=== PATIENT | male | born 1950 | race African-American/Black ===

== ENCOUNTER 2017-07-26 11:13 | Emergency (ER) | payer SELFPAY ==
[~2017-07-26 11:13] MED LIST: Sodium Chloride 0.9% 1,000 ML BAG ONE; Sodium Chloride 0.9% 100 ML BAG ONE; Sodium Chloride 0.9% 500 ML BAG ONE
[2017-07-26] MEDS ORDERED: Ondansetron HCl/PF 4 MG/2 ML Vial ONE (12:40)
[2017-07-26] MEDS ORDERED: HYDROcodone/Acetaminophen 10/325 mg Tablet ONE (12:40)
[2017-07-26] MEDS ORDERED: Naproxen 500 MG TAB ONE (12:40)
[2017-07-26 12:49] LABS: #Basophils 0.1 thou/uL (0.0-0.2); #Lymphocytes 1.3 thou/uL (1.20-3.40); #Monocytes 0.9 thou/uL (0.11-0.59); #Neutrophils 11.7 thou/uL (1.40-6.50); %Basophils 0.7 % (0.0-1.0); %Eosinophils 0.3 % (0.0-10.0); %Lymphocytes 9.2 % (21.0-51.0); %Monocytes 6.1 % (0.0-10.0); %Neutrophils 83.7 % (42.0-75.0); Hemoglobin 6.1 g/dL (14.0-18.0); Mean Corpuscular HGB CONC 32.5 g/dL (32.0-36.0); Mean Corpuscular Hemoglobin 28.1 pg (27.0-31.0); Mean Corpuscular Volume 86.5 fl (80.0-94.0); Mean Platelet Volume 6.2 fL (7.4-10.4); Platelet Count 205 thou/uL (130-400); RBC Distribution Width 16.5 % (11.5-14.5); Red Blood Cell (RBC) Count 2.16 mill/uL (4.70-6.10)
[2017-07-26 12:52] LABS: Bilirubin Negative (Negative); Blood, Urine Large (Negative); Clarity Clear (Clear); Glucose, Urine (Dipstick) Negative (Negative); Leukocyte Large (Negative); Nitrite Negative (Negative); Protein, Urine (Dipstick) 100 mg/dL (Neg-Trace); Specific Gravity, Urine 1.015 (1.005-1.030); Urobilinogen 0.2 mg/dL (0.2-1.0); pH, Urine 5.5 (5.0-9.0)
[2017-07-26 12:55] LABS: INR-International Normal Ratio 1.3; PTT 35.4 SEC (22.9-36.1); Prothrombin Time 16.6 SEC (12.0-14.7)
[2017-07-26 12:58] LABS: Bacteria/HPF 1+ HPF (None Seen); RBC/HPF 0-3 HPF (0-3); Squamous Epithelial 0-3 HPF (0-3)
[2017-07-26 13:09] LABS: ALT (SGPT) 29 U/L (8-55); AST (SGOT) 10 U/L (5-34); Albumin 3.8 g/dL (3.4-4.8); Alkaline Phosphatase 89 U/L (40-150); Bilirubin, Total 0.7 mg/dL (0.2-1.2); CK (CPK) 133 U/L (30-200); Calc. Creatinine Clearance 0 mL/min (70-130); Chloride 119 mmol/L (98-107); Estimated GFR-MDRD 2; Globulin 4.4 g/dL (2.4-3.5); Glucose 82 mg/dL (80-115); Lipase 236 U/L (8-78); Potassium 6.5 mmol/L (3.5-5.1); Protein, Total 8.2 g/dL (5.8-8.1); Sodium 146 mmol/L (136-145)
[2017-07-26 13:10] LABS: CKMB 5.3 ng/mL (0-6.6)
[2017-07-26 13:39] LABS: Carbon Dioxide Less than 8 mmol/L (23-31)
[2017-07-26 13:40] LABS: BUN (Urea Nitrogen) Greater than 125 mg/dL (8.4-25.7)
--- NOTE | 2017-07-26 14:38 | RAD ---
CHEST ONE VIEW: HISTORY: Weakness. Dyspnea. FINDINGS: The cardiac silhouette is magnified by projection and at the upper limits of normal in size. The pu lmonary vasculature is at the upper limits of normal and favored to account for subtle nodular densi ties at each perihilar level. No lobar consolidation or pneumothorax is apparent. shelter monitor leads overly the chest. IMPRESSION: No active cardiopulmonary abnormalities are demonstrated. POS: [facility]
--- NOTE | 2017-07-26 16:39 | CT ---
EXAM: ABDOMEN CT WITHOUT CONTRAST PELVIC CT WITHOUT CONTRAST 07/26/17 HISTORY: Right upper quadrant mass. Nausea. Vomiting. Weight loss. Weakness. COMPARISON: None. TECHNIQUE: Abdomen and pelvic CT are performed without IV or oral contrast. Contrast was not administered due t o decreased creatinine. Coronal reformatted images are submitted for interpretation. FINDINGS: ABDOMEN CT: Focal nodule in the left lung base measuring 1 cm. Heart size is normal. No significant pericardial f luid. Visualized aorta has an overall normal caliber. Limited evaluation of the solid organs due to the absence of IV contrast. Grossly, the solid organs are unremarkable. Gallbladder is contracted. Symmetric attenuation of psoas muscles. No mesenteric mass, lymphadenopathy, free air of free fluid. Visualized alimentary canal demonstrates a normal appearing stomach and duodenum. Multiple normal c aliber small bowel loops are noted. Ileocecal junction is normal. Normal caliber air filled appendix . Scattered fecal material in the right hemicolon. No evidence of colonic obstruction. There is severe bilateral hydronephrosis. Bilateral ureters are patent down to the level of the pelv ic inlet. Evaluation of the distal ureters is limited. PELVIC CT: Urinary bladder demonstrates marked distention with mucosal thickening. There appears to be a divert iculum at the dome of the urinary bladder. No calcifications. No pelvic lymphadenopathy, free air o r free fluid. There are no osteoblastic or osteolytic lesions. IMPRESSION: Marked distention in the urinary bladder with mucosal thickening. Bladder based pathology cannot be excluded. Cystoscopy is recommended. Urology consultation is also recommended due to severe bilatera l hydronephrosis as well as bilateral hydroureter. The exact transition point is hard to appreciate but appears to involve the ureters at the level of the pelvic inlet. Retrograde opacification is rec ommended. POS: [facility]
[2017-07-26] MEDS ORDERED: cefTRIAXone\\ROCEPHIN 2 GM VIAL ONE (16:56)
[2017-07-26] MEDS ORDERED: Levofloxacin 500 mg/D5W 100 ml Premix Bag ONE (16:56)
== END 2017-07-26 17:35 | disposition short-term general hospital (02) ==
LOC: MADERS 11:13
DX: K85.90 Acute pancreatitis without necrosis or infection, unspecified (principal); I50.9 Heart failure, unspecified; N39.0 Urinary tract infection, site not specified; D64.9 Anemia, unspecified; N13.30 Unspecified hydronephrosis; N18.9 Chronic kidney disease, unspecified; E87.8 Other disorders of electrolyte and fluid balance, not elsewhere classified; F17.210 Nicotine dependence, cigarettes, uncomplicated
CPT/HCPCS: 36415; 36430; 71010; 74176; 80053; 81001; 82150; 82550; 82553; 83690; 83880; 84484; 85025; 85610; 85730; 86850; 86900; 86901; 87086; 93005; 96374; 96375; J0696; J1956; J2405; J7050; P9016

== ENCOUNTER 2018-01-08 13:05 | Outpatient (CLI) | payer MEDICARE ==
[2018-01-08 13:33] LABS: Bilirubin Negative (Negative); Blood, Urine Trace (Negative); Clarity Clear (Clear); Glucose, Urine (Dipstick) Negative (Negative); Leukocyte Trace (Negative); Nitrite Negative (Negative); Protein, Urine (Dipstick) Negative (Neg-Trace); Urobilinogen 0.2 mg/dL (0.2-1.0)
[2018-01-08 13:42] LABS: RBC/HPF 0-3 HPF (0-3); Squamous Epithelial 0-3 HPF (0-3)
[2018-01-08 13:43] LABS: Bacteria/HPF Rare-Few HPF (None Seen)
[2018-01-08 14:53] LABS: ALT (SGPT) 9 U/L (8-55); AST (SGOT) 8 U/L (5-34); Albumin 4.1 g/dL (3.4-4.8); Alkaline Phosphatase 105 U/L (40-150); BUN (Urea Nitrogen) 48 mg/dL (8.4-25.7); Bilirubin, Total 0.4 mg/dL (0.2-1.2); Calc. Creatinine Clearance 0 mL/min (70-130); Calcium 8.9 mg/dL (7.8-10.44); Cholesterol 94 mg/dl (< 200 Desired); Estimated GFR-MDRD 19; Globulin 3.5 g/dL (2.4-3.5); Glucose 133 mg/dL (80-115); HDL Cholesterol 31 mg/dL (>60 Neg Risk); LDL Cholesterol, Calculated 48 mg/dL; Protein, Total 7.6 g/dL (5.8-8.1); Triglycerides 75 mg/dL (Less than 150)
[2018-01-08 15:05] LABS: Chloride 105 mmol/L (98-107); Potassium 4.8 mmol/L (3.5-5.1); Sodium 136 mmol/L (136-145)
[2018-01-08 16:07] LABS: Carbon Dioxide 19 mmol/L (23-31)
[2018-01-08 16:09] LABS: Anion Gap 17 mmol/L (10-20)
== END 2018-01-08 13:06 | disposition home or self-care (01) ==
LOC: MADLAB 13:05
PROVIDERS: ATTEND Family Medicine
DX: N39.0 Urinary tract infection, site not specified (principal); I12.0 Hypertensive chronic kidney disease with stage 5 chronic kidney disease or end stage renal disease; N18.6 End stage renal disease
CPT/HCPCS: 36415; 80053; 80061; 81001; 84439; 84443